=== PATIENT | male | born 1965 | race African-American/Black ===

== ENCOUNTER 2017-08-25 20:43 | Emergency (ER) | payer BC ==
[2017-08-25 20:58] VITALS: BP 154/115
--- NOTE | 2017-08-25 21:11 | ERNOTE ---
Back Pain ER HPI Date of Service: 08/25/17 Presenting Symptoms: injury/pain to back Time Seen by Provider: 08/25/17 21:04 Source: patient Exam Limitations: no limitations Immunizations: IMMUNIZATION HX Immunizations Up to Date Yes History of Influenza Vaccine No Hx Pneumococcal Vaccination No Allergies/Adverse Reactions: Allergies No Known Allergies Allergy (Unverified 04/13/16 09:54) Home Medications: HOME MEDICATIONS Naproxen [Naprosyn] 500 mg PO BID PRN #60 tab 08/25/17 [Last Taken Unknown] Narrative: Pt. comes in with 12 hour c/o R posterior thoracic pain between two ribs just under his shoulder blade. Pt. denies any SOB, CP, NVD, fever, recent illness, injury, alleviating factors or prehospital treatment pt. does state that is worsens with deep breathing, coughing and use of R arm. Review of Systems - Review of Systems Constitutional: Present: no symptoms reported. Absent: recent illness, fever, chills EYE: Present: no symptoms reported ENT: Present: no symptoms reported Respiratory: Present: no symptoms reported. Absent: shortness of breath, cough , wheezing Cardiology: Present: no symptoms reported. Absent: chest pain, palpitations, edema Gastrointestinal/Abdominal: Present: no symptoms reported. Absent: nausea, vomiting, diarrhea Genitourinary: Present: no symptoms reported. Absent: pain, decreased urinary output Musculoskeletal: Present: back pain - R post thoracic Skin: Present: no symptoms reported. Absent: rash, change in hair/nails Neurological: Present: no symptoms reported. Absent: headache, dizziness/light- headedness, numbness, tingling All Other Systems: All systems neg except as marked - Patient's Past Medical History Patient History - Medical: No pertinent hx Patient History - Cardiac/Respiratory: Hypertension Patient History - Cancer: No Hx of Cancer Patient History - Surgical Procedures: Back Surgery Patient History - Other: None - Social History Living Situations: alone Abuse History: No History of abuse Psych History: No pertinent hx Smoking Status: Never smoker Alcohol Use: none Drug Use: none - Immunizations Immunizations Up to Date: Yes Hx Pneumococcal Vaccination: No History of Influenza Vaccine: No Physical Exam - Physical Exam General Appearance: Present: wd/wn, alert, no apparent distress Head Exam: Present: normal inspection, no evidence of injury Eye Exam: Normal inspection: bilateral, PERRL: bilateral, EOMI: bilateral Ears, Nose, Throat: Present: normal ENT inspection, normal pharynx Neck: Present: normal inspection, nontender. Absent: lymphadenopathy (R), lymphadenopathy (L) Respiratory: Present: no respiratory distress, normal breath sounds, no accessory muscle use, lungs clear Cardiovascular/Chest: Present: regular rate, rhythm, no murmur, normal peripheral pulses, chest tenderness - R post thorax 4-5 intercostal spaces Gastrointestinal/Abdominal: Present: normal bowel sounds, nontender, nondistended, soft, no organomegaly Extremity Exam: Present: normal inspection Neurological Exam: Present: alert, oriented, normal mood/affect, no motor/ sensory deficits Skin Exam: Present: normal color, warm/dry. Absent: pallor, skin rash ED Progress - Date and Time Seen: Date and Time: 08/25/17 21:50 Pt. improved with medications and xray negative so feel that this is related to muscle pain. Educated pt. that he needs to follow up with primary provider in 2- 3 days will give him a list of providers in the area. 08/25/17 21:56 - Vital Signs Patient's Vital Signs:: I have reviewed the patient's vital signs. Vital Signs: Vital Signs 08/25/17 20:55 Temperature 37.0 C Pulse Rate 67 Respiratory 18 Rate Blood Pressure 154/115 O2 Sat by Pulse 100 Oximetry - X-Ray X-Ray #1 X-Ray: chest Interpretation: Reviewed by me X-ray Comments: No acute cardiopulmonary process. Pt. does not have any difficulty standing or L shoulder weakness contrary to what is written on Xray report. - Progress/Reassessment Chief Complaint: Back Pain Progress:: Improved Departure Clinical Impression: Repetitive strain injury of right shoulder Qualifiers: Encounter type: initial encounter Qualified Code(s): S46.911A - Strain of unspecified muscle, fascia and tendon at shoulder and upper arm level, right arm , initial encounter Strain of latissimus dorsi muscle Qualifiers: Encounter type: initial encounter Qualified Code(s): S29.012A - Strain of muscle and tendon of back wall of thorax, initial encounter - Departure Disposition: Home self-care Condition: Good Instructions: Muscle Strain, [id number] Additional Instructions: Please follow up with primary provider in 2-3 days of your choice. Prescriptions: Naproxen [Naprosyn] 500 mg PO BID PRN #60 tab PRN Reason: Pain
[2017-08-25] MEDS ORDERED: KETOROLAC TROMETHAMINE 60 MG/2 ML VIAL IM ONE ×2 (21:12→21:16)
[2017-08-25 21:45] LABS: Hematocrit 48.8 % (42.0-52.0); Mean Cell Volume 89.7 fl (78-100); Mean Corpuscular Hemoglobin 29.4 pg (27-31); Mean Corpuscular Hgb Conc 32.8 g/dl (32-36); Mean Platelet Volume 11.1 fl (6.0-9.5); Neutrophil % 65.8 % (42-75.0); Platelet Count 216 K/mm3 (150-450); Red Blood Count 5.44 M/mm3 (4.7-6.0); Red Cell Distribution Width 12.8 % (11.5-14.0); White Blood Count 4.5 K/mm3 (4.0-10.5)
[2017-08-25 22:02] LABS: Albumin * 4.4 gm/dl (3.4-5.0); Anion Gap 10.3 mmol/L (6.8-13.8); BUN/Creatinine Ratio 10.4 (9.0-21.6); Bilirubin, Total 0.6 mg/dL (0.0-1.1); Ca. Corrected For Albumin 8.8 mg/dL (8.4-10.2); Calcium * 9.4 mg/dL (7.9-10.9); Carbon Dioxide 32.5 mmol/L (24-32.6); Potassium 3.8 mmol/L (3.4-4.6); Total Protein 8.1 gm/dL (6.2-8.2)
== END 2017-08-25 22:14 | disposition home or self-care (01) ==
LOC: ER 20:43
DX: S46.911A Strain of unspecified muscle, fascia and tendon at shoulder and upper arm level, right arm, initial encounter (principal); S29.012A Strain of muscle and tendon of back wall of thorax, initial encounter